=== PATIENT | female | born 1950 | race Caucasian/White ===

== ENCOUNTER → 2016-10-21 | Outpatient (CLI) | payer MEDICARE, OTHER ==
--- NOTE | 2016-10-21 10:02 | XR ---
EXAMINATION TYPE: XR abdomen 1V DATE OF EXAM: 10/21/2016 9:44 AM CLINICAL DATA: 65 year-old female right kidney stones, PHH COMPARISON: None FINDINGS: Supine imaging limited for assessment of free air. There is moderate stool burden. Nonobstructive bow el gas pattern. Phleboliths in the pelvis. Bowel content partially obscures the right renal shadow. N o definite suspicious calcification is seen. IMPRESSION: Moderate stool burden with bowel content partially obscuring the renal shadows. Phleboliths in the pe lvis with vascular calcifications.
== END | disposition home or self-care (01) ==
LOC: RADXRMAIN 09:22
PROVIDERS: ATTEND Urology
DX: I87.8 Other specified disorders of veins (principal); I70.90 Unspecified atherosclerosis
CPT/HCPCS: 74000

== ENCOUNTER → 2016-10-22 | Outpatient (CLI) | payer MEDICARE, OTHER ==
--- NOTE | 2016-10-25 11:45 | MM ---
Reason for exam: screening (asymptomatic). Last mammogram was performed 1 year and 1 month ago. History: Patient is postmenopausal. Benign left mammotome panel of the left breast, June 18, 2005. Excisional biopsy of the left breast, December 1999. Physical Findings: A clinical breast exam by your physician is recommended on an annual basis and results should be correlated with mammographic findings. MG Screening Mammo w CAD Bilateral CC and MLO view(s) were taken. Prior study comparison: September 24, 2015, bilateral MG screening mammo w CAD. July 22, 2014, bilateral MG screening mammo w CAD. There are scattered fibroglandular densities. Previous mammotome biopsy in the left breast. No significant changes when compared with prior studies. ASSESSMENT: Benign, BI-RAD 2 RECOMMENDATION: Routine screening mammogram of both breasts in 1 year.
== END | disposition home or self-care (01) ==
LOC: RADMAMWWP 10:37
PROVIDERS: ATTEND Internal Medicine
DX: Z12.31 Encounter for screening mammogram for malignant neoplasm of breast (principal)

== ENCOUNTER → 2016-11-01 | Outpatient (CLI) | payer MEDICARE, OTHER ==
--- NOTE | 2016-11-01 09:31 | CT ---
EXAMINATION TYPE: CT abdomen pelvis wo con DATE OF EXAM: 11/01/2016 9:19 AM COMPARISON: 08-13 HISTORY: Patient complains of bilateral flank pain. CT DLP: 1038 mGycm FINDINGS: LUNG BASES: No evidence for nodule. No evidence for infiltrate. LIVER/GB: The gallbladder is unremarkable. No space-occupying hepatic lesion. PANCREAS: No pancreatic mass identified. No inflammatory process seen. SPLEEN: No evidence for splenomegaly. No intrasplenic lesions seen. ADRENALS: No adrenal nodules identified. No evidence for thickening. KIDNEYS: No evidence for renal mass. No nephrolithiasis. No hydronephrosis. Multiple left pelvic phle boliths noted. Urinary bladder is grossly unremarkable. BOWEL: Appendix has a normal appearance. No evidence of bowel obstruction. No inflammatory process. T here is moderate fecal stasis identified. Lymph nodes: No evidence for adenopathy greater than 1 cm. Abdominal aorta: Atheromatous changes seen. No evidence for aneurysm. Genital organs: No significant abnormality. Other: No significant abnormality. IMPRESSION: 1. NO EVIDENCE FOR HYDRONEPHROSIS OR NEPHROLITHIASIS. 2. MODERATE FECAL STASIS.
== END | disposition home or self-care (01) ==
LOC: RADCTMAIN 09:00
PROVIDERS: ATTEND Urology
DX: N20.0 Calculus of kidney (principal)
CPT/HCPCS: 74176

== ENCOUNTER → 2019-01-30 | Outpatient (CLI) | payer MEDICARE, OTHER ==
--- NOTE | 2019-01-31 11:54 | MM ---
Reason for exam: screening (asymptomatic). Last mammogram was performed 1 year ago. History: Patient is postmenopausal. Benign left mammotome panel of the left breast, June 18, 2005. Excisional biopsy of the left breast, December 1999. Physical Findings: A clinical breast exam by your physician is recommended on an annual basis and results should be correlated with mammographic findings. MG 3D Screening Mammo W/Cad Bilateral CC and MLO view(s) were taken. Prior study comparison: January 19, 2018, bilateral MG 3d screening mammo w/cad. October 22, 2016, bilateral MG screening mammo w CAD. The breast tissue is heterogeneously dense. This may lower the sensitivity of mammography. There are benign appearing round vascular calcifications bilaterally. Previous mammotome biopsy in the left breast. There is no discrete abnormality. ASSESSMENT: Benign, BI-RAD 2 RECOMMENDATION: Routine screening mammogram of both breasts in 1 year.
== END ==
LOC: RADMAMWWP 10:38
PROVIDERS: ATTEND Internal Medicine
DX: Z12.31 Encounter for screening mammogram for malignant neoplasm of breast (principal)
CPT/HCPCS: 77063; 77067

== ENCOUNTER → 2020-07-17 | Outpatient (CLI) | payer MEDICARE, OTHER ==
--- NOTE | 2020-07-18 13:57 | MM ---
Reason for exam: screening (asymptomatic). Last mammogram was performed 1 year and 5 months ago. History: Patient is postmenopausal. Benign left mammotome panel of the left breast, June 18, 2005. Excisional biopsy of the left breast, December 1999. Physical Findings: A clinical breast exam by your physician is recommended on an annual basis and results should be correlated with mammographic findings. MG 3D Screening Mammo W/Cad Bilateral CC and MLO view(s) were taken. Prior study comparison: January 30, 2019, bilateral MG 3d screening mammo w/cad. January 19, 2018, bilateral MG 3d screening mammo w/cad. There are scattered fibroglandular densities. No significant changes when compared with prior studies. ASSESSMENT: Benign, BI-RAD 2 RECOMMENDATION: Routine screening mammogram of both breasts in 1 year.
== END | disposition home or self-care (01) ==
LOC: RADMAMWWP 10:11
PROVIDERS: ATTEND Internal Medicine
DX: Z12.31 Encounter for screening mammogram for malignant neoplasm of breast (principal)
CPT/HCPCS: 77063; 77067

== ENCOUNTER → 2021-09-10 | Outpatient (CLI) | payer MEDICARE, OTHER ==
--- NOTE | 2021-09-11 13:56 | MM ---
Reason for exam: screening (asymptomatic). Last mammogram was performed 1 year and 2 months ago. History: Patient is postmenopausal. Benign left mammotome panel of the left breast, June 18, 2005. Excisional biopsy of the left breast, December 1999. Physical Findings: A clinical breast exam by your physician is recommended on an annual basis and results should be correlated with mammographic findings. MG 3D Screening Mammo W/Cad Bilateral CC and MLO view(s) were taken. Prior study comparison: July 17, 2020, bilateral MG 3d screening mammo w/cad. January 30, 2019, bilateral MG 3d screening mammo w/cad. The breast tissue is heterogeneously dense. This may lower the sensitivity of mammography. Stable benign calcifications. There is no discrete abnormality. No significant changes when compared with prior studies. ASSESSMENT: Benign, BI-RAD 2 RECOMMENDATION: Routine screening mammogram of both breasts in 1 year.
== END | disposition home or self-care (01) ==
LOC: RADMAMWWP 10:24
PROVIDERS: ATTEND Internal Medicine
DX: Z12.31 Encounter for screening mammogram for malignant neoplasm of breast (principal); Z78.0 Asymptomatic menopausal state
CPT/HCPCS: 77063; 77067

== ENCOUNTER → 2024-03-15 | Outpatient (CLI) | payer MEDICARE, OTHER ==
--- NOTE | 2024-03-19 15:55 | MM ---
Reason for Exam: Screening (asymptomatic). Last mammogram was performed 2 year(s) and 6 month(s) ago. Patient History: Menarche at age 14. First Full-Term at age 19. Hysterectomy at age 52. Postmenopausal. 12/1999, Excisional Biopsy on the Left side. 06/18/2005, Benign Core Biopsy on the left side. Risk Values: Verenice 5 year model risk: 1.7%. NCI Lifetime model risk: 4.3%. Prior Study Comparison: 01/30/2019 Bilateral Screening Mammogram, [facility]. 07/17/2020 Bilateral Screening Mammogram, [facility]. 09/10/2021 Bilateral Screening Mammogram, [facility]. Tissue Density: There are scattered areas of fibroglandular density. Findings: Analyzed By CAD. The pattern is symmetrical. Core markers within the left breast. Benign vascular calcifications present bilaterally. No significant interval changes. No suspicious groups of microcalcifications, spiculated or lobular masses, architectural distortion or other secondary signs of malignancy are mammographically apparent. Overall Assessment: Benign, BI-RAD 2 Management: Screening Mammogram of both breasts in 1 year. A negative mammogram report should not preclude additional follow up of suspicious palpable abnormalities. Patient should continue monthly self breast exam. A clinical breast exam by your physician is recommended on an annual basis and results should be correlated with mammographic findings. Note on Verenice scores and lifetime risk: 1. A Verenice score greater than 3% is considered moderate risk. If this is the case, consider specialist referral to assess eligibility for a risk reducing agent. 2. If overall lifetime risk for the development of breast cancer is 20% or higher, the patient may qualify for future screening with alternating mammogram and breast MRI. Electronically signed and approved by: Tariq Lofton D.O. Radiologis
== END | disposition home or self-care (01) ==
LOC: RADMAMWWP 09:49
PROVIDERS: ATTEND Family Medicine
DX: Z12.31 Encounter for screening mammogram for malignant neoplasm of breast (principal); Z78.0 Asymptomatic menopausal state
CPT/HCPCS: 77063; 77067

== ENCOUNTER → 2024-04-09 | Outpatient (CLI) | payer MEDICARE, OTHER ==
[2024-04-09 13:35] VITALS: BP 137/75; PULSE 76; RESP 16; TEMP 98.3
[2024-04-09] MEDS: DENOSUMAB 60 MG/ML 1 ML SYRINGE SQ NR (13:35)
== END ==
LOC: PROCWHC3 13:14
PROVIDERS: ATTEND Family Medicine
DX: M81.0 Age-related osteoporosis without current pathological fracture (principal)
CPT/HCPCS: 96372; J0897

== ENCOUNTER → 2024-07-16 | Outpatient (CLI) | payer MEDICARE, OTHER ==
--- NOTE | 2024-07-16 08:54 | US ---
EXAMINATION TYPE: US liver DATE OF EXAM: 07/16/2024 COMPARISON: None CLINICAL INDICATION: Female, 73 years old with history of K76.0 FATTY LIVER; Abnormal labs. TECHNIQUE: Grayscale and color Doppler imaging of the right upper quadrant was performed. FINDINGS: EXAM MEASUREMENTS: Liver Length: 16.4 cm Gallbladder Wall: 0.2 cm CBD: 0.5 cm Right Kidney: 10.7 x 6.2 x 5.6 cm Pancreas: Obscured by bowel gas. Visualized portions are heterogeneous recommend follow-up CT scan o r MRI. Liver: Coarse Gallbladder: No stones or wall thickening seen Evidence for sonographic Hsu's sign: neg CBD: wnl Right Kidney: No hydronephrosis or masses seen IMPRESSION: 1. Nonspecific pattern to the liver can be associated with underlying hepatocellular disease or hepat ic stenosis. 2. Heterogeneous appearance to the visualized portion of the pancreas. Finding nonspecific recommend follow-up CT or MRI. [facility], , 07/16/2024 8:52 AM
== END | disposition home or self-care (01) ==
LOC: RADUSWWP 06:50
PROVIDERS: ATTEND Internal Medicine Gastroenterology
CPT/HCPCS: 76705

== ENCOUNTER → 2024-07-16 | Outpatient (CLI) | payer MEDICARE, OTHER ==
--- NOTE | 2024-07-17 09:31 | MR ---
EXAMINATION TYPE: MR pancreas wo/w con DATE OF EXAM: 07/16/2024 9:43 AM INDICATION: Patient age:Female; 73 years old; Reason for study: R93.3 abnormal findings digestive tract; PHH. COMPARISON: Ultrasound liver 07/16/2024, CT abdomen and pelvis 11/01/2016 TECHNIQUE: Multiplanar multi-sequence imaging was performed of the abdomen without and with IV contr ast. The patient was given 7 ccs of Gadavist intravenously and dynamic imaging was performed. Post I V contrast subtraction images were also submitted for review. FINDINGS: LOWER CHEST: No gross irregularity. ABDOMEN Liver: Noncirrhotic morphology. No significant dropout of signal on out of phase imaging to suggest f atty infiltration. No focal lesion identified. Gallbladder and Bile ducts: Unremarkable. Pancreas: No pancreatic ductal dilatation. Fatty infiltration of the pancreas most prominent involvin g the head, neck, and uncinate process. No suspicious enhancing lesion. No surrounding fluid collecti ons. Spleen: Unremarkable. Adrenal glands: Unremarkable. Kidneys: Unremarkable. Stomach and Bowel: Unremarkable as visualized. Peritoneum: No evidence of pneumoperitoneum, free fluid, or adenopathy. Vasculature: Unremarkable. No aortic aneurysm. Abdominal wall: Unremarkable. Musculoskeletal: The osseous structures appear intact. IMPRESSION: 1. No evidence of abdominal mass. 2. Pancreatic lipomatosis. [facility], , 07/17/2024 9:28 AM
== END ==
LOC: RADMRIMAIN 07:17
PROVIDERS: ATTEND Internal Medicine Gastroenterology
DX: R93.3 Abnormal findings on diagnostic imaging of other parts of digestive tract
CPT/HCPCS: 74183

== ENCOUNTER → 2024-08-22 | Outpatient (CLI) | payer MEDICARE, OTHER ==
--- NOTE | 2024-08-22 11:19 | CTL ---
EXAMINATION TYPE: CT Low Dose Lung DATE OF EXAM ORDERED: 08/22/2024 COMPARISON: None CLINICAL INDICATION: Female, 73 years old with history of Z12.2, Z87.891; PHH, personal tobacco use, Lung cancer screening, History of Smoking/tobacco use. TECHNIQUE: Low dose computed tomography scan was performed through the chest at 1 mm thick sections a nd reconstructed images in multiple planes at 1 mm and [address] DLP: 67.[address] CTDI: 1.8 mGy Automated exposure control for dose reduction was used. CT DIAGNOSTIC QUALITY: Satisfactory FINDINGS: Nodules: Left upper lobe lateral 3.6 mm pulmonary nodule (series 205, image 76). LUNGS: COPD: Severity: None Fibrosis: Severity: None Lymph nodes: None Other findings: None RIGHT PLEURAL SPACE: Effusion: None Calcification: None Thickening: None Pneumothorax: None LEFT PLEURAL SPACE: Effusion: None Calcification: None Thickening: None Pneumothorax: None HEART: Heart Size: Normal Coronary Calcification: Moderate Pericardial Effusion: None OTHER FINDINGS: Upper abdomen: Tiny hiatal hernia. Bony thorax: Mild multilevel degenerative disc disease. Supraclavicular region: None Other: None IMPRESSION: 1. Left upper lobe 3.6 mm pulmonary nodule. 2. Moderate coronary arterial calcification which may be an indicator coronary vascular disease. CT LUNG RAD AND CT CHEST RECOMMENDATION: Lung-Rad 2 Benign Appearance or Behavior: Continue annual sc reening with LDCT in 12 months. S Modifier (other clinically significant findings): None [facility], , 08/22/2024 11:17 AM
== END | disposition home or self-care (01) ==
LOC: RADCTMAIN 09:47
PROVIDERS: ATTEND Family Medicine
DX: Z12.2 Encounter for screening for malignant neoplasm of respiratory organs (principal); R91.1 Solitary pulmonary nodule; K44.9 Diaphragmatic hernia without obstruction or gangrene; Z87.891 Personal history of nicotine dependence
CPT/HCPCS: 71271

== ENCOUNTER → 2024-12-11 | Outpatient (CLI) | payer MEDICARE, OTHER ==
--- NOTE | 2024-12-11 08:12 | US ---
EXAMINATION TYPE: US liver DATE OF EXAM: 12/11/2024 COMPARISON: US 2023 CLINICAL INDICATION: Female, 74 years old with history of K76.0 FATTY LIVER; TECHNIQUE: Grayscale and color Doppler imaging of the right upper quadrant was performed. FINDINGS: EXAM MEASUREMENTS: Liver Length: 15.0 cm Gallbladder Wall: 0.2 cm CBD: 0.4 cm Right Kidney: 11.1 x 5.4 x 5.8 cm Pancreas: limited by overlying midline bowel gas, visualized portions appear heterogeneous Liver: mildly course echotexture with increased echotexture no solid masses, dilated ducts or cysts . Gallbladder: wnl Evidence for sonographic Hsu's sign: no CBD: visualized portions wnl, limited by overlying bowel gas Right Kidney: wnl IMPRESSION: 1. No evidence for acute process. 2. Hepatic steatosis. [facility], , 12/11/2024 8:10 AM
[2024-12-11 14:55] LABS: Basophils # (A) 0.07 X 10*3/uL (0.00-0.10); Basophils % (A) 1.1 %; Eosinophils # (A) 0.06 X 10*3/uL (0.04-0.35); HCT 37.1 % (37.2-46.3); HGB 12.2 g/dL (12.0-15.0); Immature Grans, Automated 0 %; Lymphocytes # (A) 1.67 X 10*3/uL (0.90-5.00); Lymphocytes % (A) 27.2 %; MCHC 32.9 g/dL (32.0-37.0); MCV 91.4 FL (80.0-97.0); Monocytes # (A) 0.52 X 10*3/uL (0.20-1.00); Monocytes % (A) 8.5 %; NRBC Per 100 WBC 0 X 10*3/uL (0.00-0.01); Neutrophils # (A) 3.82 X 10*3/uL (1.80-7.70); Neutrophils % (A) 62.2 %; Platelet Count 463 X 10*3/uL (140-440); RBC 4.06 X 10*6/uL (4.10-5.20); RDW 14.6 % (11.5-14.5); WBC 6.14 X 10*3/uL (4.50-10.00)
[2024-12-11 15:22] LABS: BUN/Creat Ratio 19.88 Ratio (12.00-20.00); Blood Urea Nitrogen 15.9 mg/dL (9.0-27.0); Chloride 103 mmol/L (96-109); Glucose 121 mg/dL (70-110); Potassium 4.5 mmol/L (3.5-5.5); Sodium 141 mmol/L (135-145)
[2024-12-11 15:23] LABS: ALT 33 U/L (8-44); AST 29 U/L (13-35); Albumin 4.7 g/dL (3.8-4.9); Albumin/Globulin Ratio 2.24 Ratio (1.60-3.17); Alkaline Phosphatase 51 U/L (41-126); Calcium 11.1 mg/dL (8.7-10.3); Carbon Dioxide 25.4 mmol/L (21.6-31.8); Globulin 2.1 g/dL (1.6-3.3); Total Bilirubin 0.4 mg/dL (0.3-1.2); Total Protein 6.8 g/dL (6.2-8.2)
== END | disposition home or self-care (01) ==
LOC: RADUSWWP 07:31
PROVIDERS: ATTEND Internal Medicine Cardiovascular Disease
DX: K76.0 Fatty (change of) liver, not elsewhere classified (principal); R77.2 Abnormality of alphafetoprotein
CPT/HCPCS: 76705; 80053; 82105; 85025

== ENCOUNTER → 2025-03-27 | Outpatient (CLI) | payer MEDICARE, OTHER ==
--- NOTE | 2025-03-27 11:33 | MM ---
Reason for Exam: Screening (asymptomatic). Last screening mammogram was performed 12 month(s) ago. Patient History: Menarche at age 14. First Full-Term at age 19. Hysterectomy at age 52. Postmenopausal. 12/1999, Excisional Biopsy on the Left side. 06/18/2005, Benign Core Biopsy on the left side. Risk Values: Verenice 5 year model risk: 1.7%. NCI Lifetime model risk: 4.0%. Prior Study Comparison: 07/17/2020 Bilateral Screening Mammogram, [facility]. 09/10/2021 Bilateral Screening Mammogram, [facility]. 03/15/2024 Bilateral MG 3D screening mammo w/cad, [facility]. Tissue Density: There are scattered areas of fibroglandular density. Findings: Analyzed By CAD. Right breast: There is no suspicious group of microcalcifications or new suspicious mass. Left breast: There is no suspicious group of microcalcifications or new suspicious mass. Overall Assessment: Negative, BI-RAD 1 Management: Screening Mammogram of both breasts in [address] [facility] will attempt to contact patient to return for supplemental views and ultrasound if indicated. Patient should continue monthly self-breast exams. A clinical breast exam by your physician is recommended on an annual basis. This exam should not preclude additional follow-up of suspicious palpable abnormalities. Note on Verenice scores and lifetime risk: 1. A Verenice score greater than 3% is considered moderate risk. If this is the case, consider specialist referral to assess eligibility for a risk reducing agent. 2. If overall lifetime risk for the development of breast cancer is 20% or higher, the patient may qualify for future screening with alternating mammogram and breast MRI. [facility], , 03/27/2025 10:30 AM. Electronically signed and approved by: Giovanni Baron DO
== END | disposition home or self-care (01) ==
LOC: RADMAMWWP 09:05
PROVIDERS: ATTEND Family Medicine
DX: Z12.31 Encounter for screening mammogram for malignant neoplasm of breast (principal); R92.323 Mammographic fibroglandular density, bilateral breasts; Z78.0 Asymptomatic menopausal state
CPT/HCPCS: 77063; 77067

== ENCOUNTER → 2025-03-27 | Outpatient (CLI) | payer MEDICARE, OTHER ==
--- NOTE | 2025-03-27 18:22 | CT ---
EXAMINATION TYPE: CT sinus wo con DATE OF EXAM: 03/27/2025 10:08 AM COMPARISON: None. CLINICAL INDICATION: Female, 74 years old with history of J32.1 SINUSITIS R09.89 SX OF CIRCUL SYSTEM, Chronic frontal sinusitis, choking sensation TECHNIQUE: The paranasal sinuses are examined in the axial plane at 2 mm thick sections. Reconstruct ed images in the coronal plane were obtained. Contrast used: mL of , (none if empty) Oral contrast used: (none if empty) CT DLP: 556.90 mGycm, Automated exposure control for dose reduction was used. FINDINGS: There is dental amalgam scatter artifact There is some mild mucosal thickening along the anterior inferior left maxillary sinus. The ethmoid air cells are clear. The sphenoid sinuses are clear. The frontal sinuses are clear. Mastoid air c ells are clear. No suspicious air-fluid levels within the paranasal sinuses evident. The septum is evaluated. There is septal deviation to the right. The ostiomeatal units are patent. IMPRESSION: 1. Minimal mucosal thickening anterior inferior left maxillary sinus. [facility], , 03/27/2025 6:20 PM
--- NOTE | 2025-03-28 07:56 | US ---
EXAMINATION TYPE: US thyroid st tissue head/neck DATE OF EXAM: 03/27/2025 COMPARISON: NONE CLINICAL INDICATION: Female, 74 years old with history of R0989 CHOKING SENSATION; Not on thyroid med s. TECHNIQUE: Grayscale and color Doppler imaging of the thyroid gland. FINDINGS: GLAND SIZE: Right Lobe: 3.9 x 1.8 x 1.9 cm Overall Parenchyma: homogeneous Left Lobe: 4.6 x 1.7 x 1.5 cm Overall Parenchyma: homogeneous Isthmus Thickness: 0.5 cm NODULES RIGHT: # of nodules measured on right: 0 LEFT: # of nodules measured on left: 0 ISTHMUS: # of nodules measured in the isthmus: 0 Bilateral neck scanned, no evidence of lymphadenopathy. IMPRESSION: 1. No suspicious nodules Highest TI-RADS level nodule reported: 2017 ACR TI-RADS LEVEL: TI-RADS 1 - BENIGN: No FNA TI-RADS assessment score and recommendation for follow-up based on appropriate scoring and treatment protocols. TR1 Benign No FNA TR2 Not suspicious No FNA TR3: If nodule size is ? 2.5 cm, FNA is recommended. If nodule size is ? 1.5 cm, follow-up imaging at 1, 3, and 5 years is recommended. TR4: If nodule size is ? 1.5 cm, FNA is recommended. If nodule size is ? 1.0 cm, follow-up imaging at 1, 2, 3, and 5 years is recommended. TR5: If nodule size is ? 1.0 cm, FNA is recommended. If nodule size is ? 0.5 cm, annual follow-up for up to 5 years is recommended. TR 1 thyroid nodules have a 0.3 % risk of malignancy. TR 2 thyroid nodules have a 1.5 % risk of malignancy. TR 3 thyroid nodules have a 4.8 % risk of malignancy. TR 4 thyroid nodules have a 9.1 % risk of malignancy. TR 5 thyroid nodules have a 35 % risk of malignancy. [email or web address] [facility], , 03/28/2025 7:54 AM
== END | disposition home or self-care (01) ==
LOC: RADCTMAIN 09:32
PROVIDERS: ATTEND Family Medicine
DX: J32.1 Chronic frontal sinusitis (principal); J34.89 Other specified disorders of nose and nasal sinuses; R09.89 Other specified symptoms and signs involving the circulatory and respiratory systems
CPT/HCPCS: 70486; 76536